=== PATIENT | female | born 2000 | race Caucasian/White ===

== ENCOUNTER 2023-11-15 16:12 | Emergency (ER) | payer OTHER ==
[~2023-11-15] VITALS: Ht 160 cm; Wt 95.3 kg
[~2023-11-15 16:12] MED LIST: FIORICET 50-321 EACH
[2023-11-15] MEDS ORDERED: KETOROLAC TROMETHAMINE 60 MG VIAL IM ONE (18:15)
[2023-11-15] MEDS ORDERED: KETO10TA2 PO (21:17)
== END 2023-11-15 21:38 ==
LOC: ER 16:12
DX: R51.9 Headache, unspecified (principal)

== ENCOUNTER 2023-12-29 08:12 | Emergency (ER) | payer OTHER ==
[~2023-12-29] VITALS: Ht 162.6 cm; Wt 90.7 kg
[~2023-12-29 08:12] MED LIST changes: +KETO10TA2 PO
== END 2023-12-29 09:33 | disposition home or self-care (01) ==
LOC: ER 08:12
DX: H57.12 Ocular pain, left eye (principal)

== ENCOUNTER → 2024-01-17 | Emergency (ER) | payer OTHER ==
[~2024-01-17] VITALS: Ht 162.6 cm; Wt 90.7 kg
== END | disposition left against medical advice (07) ==
LOC: ER 00:34
DX: Z53.21 Procedure and treatment not carried out due to patient leaving prior to being seen by health care provider (principal)